=== PATIENT | male | born 1980 | race Caucasian/White ===

== ENCOUNTER 2021-08-13 01:44 | Emergency (ER) | payer BC ==
[2021-08-13] MEDS ORDERED: HYDROmorphone 1 MG/ML Syringe IVPUSH ONE (02:13)
[2021-08-13] MEDS ORDERED: Tamsulosin 0.4 MG Cap.ER PO ONE (02:13)
[2021-08-13] MEDS ORDERED: Ondansetron 4 MG/2 ML SDV IVPUSH ONE (02:13)
[2021-08-13] MEDS ORDERED: Ketorolac 30 MG/ML SDV IVPUSH STA (02:13)
[2021-08-13] MEDS ORDERED: Sodium Chloride 0.9% 1,000 ML IV SCH (02:15)
--- NOTE | 2021-08-13 02:20 | EDM.PDOC ---
ED HPI GENERAL MEDICAL PROBLEM - General Chief Complaint: Abdominal Pain Stated Complaint: LT SIDE PAIN Time Seen by Provider: 08/13/21 01:53 Source of Information: Reports: Patient History Limitations: Reports: No Limitations - History of Present Illness INITIAL COMMENTS - FREE TEXT/NARRATIVE: Mr. Newell is a very pleasant 40-year-old gentleman who now presents the ED stating that he developed sudden-onset left lower quadrant abdominal pain radiating into his left groin and extending up to his left flank around 23:00 last night, 08/12/2021. He is unable to describe the character of the pain, other than "it hurts". He states that the pain is constant, but progressively getting worse. He has not identified any modifiers. He states that he feels like he needs to urinate, but that all he has been able to do is dribble a bit. He states that he has had dysuria when he dribbles. He states that his pain is similar to when he had a testicular torsion as a small child, although he also reports that no surgery was required, so that history is somewhat questionable. He has not taken any [id number] or home remedies since the onset of his symptoms. At triage, the patient's initial BP was found to be modestly elevated at 155/103, otherwise, he was hemodynamically stable, afebrile, saturating 100% on room air. He appears to be uncomfortable, although in no acute distress. Prior to last night, the patient denies having a recent fever, chills, sore throat, ear pain, nasal or sinus congestion, cough, dyspnea, chest pain, palpitations, nausea, vomiting, constipation, diarrhea, abdominal pain, urinary symptoms, recent weight gain or weight loss, recent bloody bowel movements or black bowel movements, recent joint aches, headaches, or rashes. The patient does not have a PCP. He has not received a COVID vaccination, nor an influenza vaccination this season. Left Abdominal Pain Score (Numeric/FACES): 10 - Related Data Allergies Allergy/AdvReac Type Severity Reaction Status Date / Time No Known Allergies Allergy Verified 08/13/21 01:55 Home Meds: Home Meds . [No Known Home Meds] 08/13/21 [History] Past Medical History - Past Health History Medical/Surgical History: Denies Medical/Surgical History Social & Family History - Tobacco Use Tobacco Use Status *Q: Current Every Day Tobacco User Years of Tobacco use: 22 Packs/Tins Daily: 1 Tobacco Use Comment: Started smoking 1999 - Caffeine Use Caffeine Use: Reports: Soda - Alcohol Use Alcohol Use History: No - Recreational Drug Use Recreational Drug Use: Yes Drug Use in Last 12 Months: Yes Recreational Drug Type: Reports: Marijuana/Hashish (last smoked Jun 2021) - Living Situation & Occupation Living situation: Reports: (), Alone Occupation: Employed ([employer]) ED ROS GENERAL - Review of Systems Review Of Systems: Comprehensive ROS is negative, except as noted in HPI. ED EXAM, RENAL/ - Physical Exam Exam: See Below Exam Limited By: No Limitations General Appearance: Alert, WD/WN, Mild Distress (Appears uncomfortable) Eye Exam: Bilateral Eye: EOMI, Normal Inspection Ears: Normal External Exam, Hearing Grossly Normal Nose: Normal Inspection Throat/Mouth: Normal Inspection, Normal Lips, Normal Voice, No Airway Compromise Head: Atraumatic, Normocephalic Neck: Normal Inspection, Full Range of Motion Respiratory/Chest: No Respiratory Distress, Lungs Clear, Normal Breath Sounds, No Accessory Muscle Use Cardiovascular: Normal Peripheral Pulses, Regular Rate, Rhythm, No Edema, No Gallop, No JVD, No Murmur, No Rub GI/Abdominal: Normal Bowel Sounds, Soft, Non-Tender (including in the LLQ), No Organomegaly, No Distention, No Abnormal Bruit, No Mass Back Exam: Normal Inspection, Full Range of Motion, CVA Tenderness (L). No: CVA Tenderness (R) Extremities: Normal Inspection, Normal Range of Motion, No Pedal Edema, Normal Capillary Refill Neurological: Alert, Oriented, Normal Cognition, No Motor/Sensory Deficits Psychiatric: Normal Affect Skin Exam: Warm, Dry, Intact, Normal Color, No Rash Course - Vital Signs Last Recorded V/S: Last Vital Signs Temp 36.1 C 08/13/21 01:54 Pulse 60 08/13/21 01:54 Resp 15 08/13/21 01:54 BP 155/103 H 08/13/21 01:54 Pulse Ox 100 08/13/21 01:54 - Orders/Labs/Meds Orders: Active Orders 24 hr Category Date Time Status Abdomen Pelvis wo Cont [CT] Stat Exams 08/13/21 02:13 Taken Sodium Chloride 0.9% [Normal Saline] 1,000 ml Med 08/13/21 02:15 Active IV ASDIRECTED Medication Orders Sodium Chloride (Normal Saline) 1,000 mls @ 150 mls/hr IV ASDIRECTED GLENDY Last Admin: 08/13/21 02:29 Dose: 150 mls/hr Documented by: MIHAI Labs: Laboratory Tests 08/13/21 08/13/21 Range/Units 01:51 04:30 Urine Color Juliet H (Yellow) Urine Appearance Slt cloudy H (Clear) Urine pH 7.5 (5.0-8.0) Ur Specific [place] 1.025 (1.005-1.030) Urine Protein 2+ H (Negative) Urine Glucose (UA) Negative (Negative) Urine Ketones 2+ H (Negative) Urine Occult Blood 2+ H (Negative) Urine Nitrite Negative (Negative) Urine Bilirubin 1+ H (Negative) Urine Urobilinogen 0.2 (0.2-1.0) Ur Leukocyte Esterase Negative (Negative) Urine RBC 10-20 H (0-5) /hpf Urine WBC 0-5 (0-5) /hpf Ur Epithelial Cells Not seen (0-5) /hpf Amorphous Sediment Moderate H (NOT SEEN) /hpf Urine Bacteria Few (FEW) /hpf Urine Mucus Many H (FEW) /hpf Influenza Type A RNA Negative (NEGATIVE) Influenza Type B RNA Negative (NEGATIVE) SARS-CoV-2 RNA (JE[facility]RE) Negative (NEGATIVE) Meds: Medications Generic Name Dose Route Start Last Admin Trade Name Freq PRN Reason Stop Dose Admin Sodium Chloride 1,000 mls @ 150 mls/hr 08/13/21 02:15 08/13/21 02:29 Normal Saline IV 150 mls/hr ASDIRECTED GLENDY Administration Discontinued Medications Generic Name Dose Route Start Last Admin Trade Name Freq PRN Reason Stop Dose Admin Hydromorphone HCl 1 mg 08/13/21 02:13 08/13/21 02:28 Hydromorphone 1 Mg/Ml Syringe IVPUSH 08/13/21 02:14 1 mg ONETIME ONE Administration Ketorolac Tromethamine 30 mg 08/13/21 02:13 08/13/21 02:28 Ketorolac 30 Mg/Ml Sdv IVPUSH 08/13/21 02:14 30 mg ONETIME STA Administration Ondansetron HCl 4 mg 08/13/21 02:13 08/13/21 02:28 Ondansetron 4 Mg/2 Ml Sdv IVPUSH 08/13/21 02:14 4 mg ONETIME ONE Administration Tamsulosin HCl 0.4 mg 08/13/21 02:13 08/13/21 02:28 Tamsulosin 0.4 Mg Cap.Er PO 08/13/21 02:14 0.4 mg ONETIME ONE Administration - Re-Assessments/Exams Free Text/Narrative Re-Assessment/Exam: 08/13/21 02:15 The patient's presentation is most consistent with a left-sided ureterolith. A swab for the SARS-CoV-2 virus and influenza was ordered at triage. I have added a urinalysis and CT of the abdomen and pelvis without IV contrast. In the meantime, the patient will be treated with IV Dilaudid, oral Flomax, IV fluid, IV Toradol, and IV Zofran. 08/13/21 04:09 CT of the abdomen and pelvis without contrast is read by [facility] as "Mild dilatation of left renal collecting system and left ureter is noted all the way to the bladder. There is an approximately 3 x 2 mm calcification in the left side of the bladder consistent with a recently passed ureteral stone. No r esidual stone is seen on the left. The right kidney appears normal." Impression: Changes consistent with recently passed left ureteral stone." Results of the patient's swab for the SARS-CoV-2 virus and influenza A + B viruses are still pending. The patient has not yet provided a urine sample for a urinalysis. 08/13/21 05:17 The patient's urinalysis is remarkable for slightly cloudy appearance, 2+ occult blood with 10-20 RBCs, leukocyte esterase negative with 0-5 WBCs, nitrate negative with few bacteria, and squamous epithelial cells not seen. His swab for the SARS-CoV-2 virus and influenza A + B viruses is negative for all. 08/13/21 05:21 Test results discussed with the patient. He states that he is symptom-free. As discussed, it appears that the patient already passed the stone into his bladder. He will be given a urine strainer to strain his urine for the next several episodes, to see if he can capture the stone. Departure - Departure Time of Disposition: :22 Disposition: Home, Self-Care 01 Condition: Good Clinical Impression: Ureterolithiasis - Discharge Information *PRESCRIPTION DRUG MONITORING PROGRAM REVIEWED*: Not Applicable *COPY OF PRESCRIPTION DRUG MONITORING REPORT IN PATIENT MARIELY: Not Applicable Referrals: PCP,None [Primary Care Provider] - Forms: ED Department Discharge Additional Instructions: You were seen in the emergency room after developing sudden onset lower left abdominal pain radiating to your left groin and up to your left flank. Work-up in the ER included a urinalysis, a swab for the SARS-CoV-2 virus and influenza A + B viruses, and a CT of your abdomen and pelvis. The CT scan confirmed that you had a stone in your ureter, that has already pa ssed into your bladder. Your urinalysis shows no urinary tract infection, and your swab for the SARS-CoV-2 virus and influenza A + B viruses was negative for all. Stay adequately hydrated. It does not really matter what type of fluid you drink. You have been given a urine strainer. We recommend that you strain all of your urine for the next several episodes, to see if you can capture the stone. If you can capture the stone, take it to your doctor for analysis. If they can determine what type of stone you have, they can give you advice on what to do to try to prevent formation of the stone in the future. If any other problems, please do not hesitate to return to the ER. Sepsis Event Note (ED) - Focused Exam Vital Signs: Vital Signs Temp Pulse Resp BP Pulse Ox 08/13/21 01:54 36.1 C 60 15 155/103 H 100 - My Orders Last 24 Hours: My Active Orders 08/13/21 02:13 Abdomen Pelvis wo Cont [CT] Stat 08/13/21 02:15 Sodium Chloride 0.9% [Normal Saline] 1,000 ml IV ASDIRECTED - Assessment/Plan Last 24 Hours: My Active Orders 08/13/21 02:13 Abdomen Pelvis wo Cont [CT] Stat 08/13/21 02:15 Sodium Chloride 0.9% [Normal Saline] 1,000 ml IV ASDIRECTED
[2021-08-13 04:17] LABS: CORONAVIRUS COVID-19 NAA NEGATIVE (NEGATIVE)
--- NOTE | 2021-08-15 13:49 | CR ---
EXAM: CT ABDOMEN \T\ PELVIS W/O CONTRAST LOCATION: [facility] [employer] [facility] DATE/TIME: 08/13/2021 2:16 AM INDICATION: Abdominal pain; patient history: left flank pain; concern for renal stone COMPARISON: None. TECHNIQUE: CT scan of the abdomen and pelvis was performed without oral or IV contrast. Multiplanar reformats were obtained. Dose reduction techniques were used. CONTRAST: None. FINDINGS: LOWER CHEST: Subsegmental atelectasis in both lower lobes. HEPATOBILIARY: No significant mass or bile duct dilatation. No calcified gallstones. PANCREAS: Normal. SPLEEN: Normal. ADRENAL GLANDS: Normal. KIDNEY/BLADDER: There is a 3 mm calculus at the left ureterovesicular junction resulting in very mild left hydroureteronephrosis. The calculus is mostly within the bladder lumen. No intrarenal calculi bilaterally. The right kidney and ureter are unremarkable. Nondistended bladder. BOWEL: Normal with no obstruction or acute inflammatory change. Nothing for appendicitis. LYMPH NODES: Normal. VASCULATURE: Unremarkable. PELVIC ORGANS: Normal. MUSCULOSKELETAL: Normal. IMPRESSION: 1. There is a 3 mm calculus near the left ureterovesicular junction that appears to be mostly in the bladder lumen suggesting a recently passed stone. Mild residual left hydroureteronephrosis. No additional urolithiasis. SIGNED BY: Bijan Pires MD 08/15/2021 12:29 PM [facility]
== END 2021-08-13 05:48 | disposition home or self-care (01) ==
LOC: JD.ED 01:44
DX: N20.1 Calculus of ureter (principal); Z72.0 Tobacco use; Z20.822 Contact with and (suspected) exposure to COVID-19
CPT/HCPCS: 0240U; 74176; 81001; 96374; 96375; 99284; A9270; J1170; J1885; J2405; J7030

== ENCOUNTER 2022-03-07 16:08 | Emergency (ER) | payer BC ==
[2022-03-07 17:59] LABS: ESTIMATED GFR 111 mL/min (>60)
[2022-03-07 18:01] LABS: ACETAMINOPHEN 0 ug/mL (10-30)
== END 2022-03-07 18:45 ==
LOC: JD.ED 16:08
DX: Z02.89 Encounter for other administrative examinations (principal)
CPT/HCPCS: 36415; 80053; 80143; 80179; 80306; 80307; 85025; 99282; 99283